=== PATIENT | female | born 1970 | race Caucasian/White ===

== ENCOUNTER 2024-01-20 09:55 | Day surgery (SDC) | payer OTHER ==
[~2024-01-20] VITALS: Ht 165.1 cm; Wt 87.1 kg
[2024-01-20] MEDS ORDERED: LIDOCAINE 2% 100 MG/5 ML UJET TP ONE (11:40)
[2024-01-20] MEDS ORDERED: fentaNYL citrate 0.05 MG/ML VIAL ONE (11:40)
[2024-01-20] MEDS: fentaNYL citrate 0.05 MG/ML VIAL IVP ONE (12:02)
[2024-01-20] MEDS: LIDOCAINE 2% 100 MG/5 ML UJET TP ONE (12:07)
== END 2024-01-20 13:15 | disposition home or self-care (01) ==
LOC: MOR 09:55 → MMU 10:11 → MOR 13:15
PROVIDERS: ATTEND Internal Medicine Gastroenterology
DX: R14.0 Abdominal distension (gaseous) (principal); I10 Essential (primary) hypertension; F32.A Depression, unspecified; Z98.891 History of uterine scar from previous surgery; Z98.51 Tubal ligation status; Z79.899 Other long term (current) drug therapy; Z98.890 Other specified postprocedural states
CPT/HCPCS: 45378; J3010